=== PATIENT | female | born 1995 | race Caucasian/White ===

== ENCOUNTER 2016-05-17 13:26 | Emergency (ER) | payer OTHER ==
[2016-05-17 13:45] VITALS: BP 101/52; PULSE 85; TEMP 98.2; BMI 24.9
[2016-05-17] MEDS ORDERED: NAPROXEN 375 MG TABLET (FP) PO ONE (13:45)
[2016-05-17] MEDS ORDERED: NAPROXEN 375 MG TABLET (FP) ONE (13:55)
--- NOTE | 2016-05-17 14:57 | PDOC ---
History of Present Illness - General Chief Complaint: Pain Stated Complaint: NECK AND BACK PAIN Time Seen by Provider: 05/17/16 13:29 History Source: Patient Exam Limitations: No Limitations - History of Present Illness Initial Comments: 05/17/16 15:20 CHIEF COMPLAINT: "I hurt my back." HISTORY OF PRESENT ILLNESS: 20-year-old female with no significant past medical history presents complaining of mid back pain and neck stiffness. She states on she slipped on the stairs and she hit her mid back. She had pain at that time which improved. The pain was just about gone until yesterday when she slipped again and did not fall, but the areas of injury were twisted. Now she is complaining of pain in her mid thoracic region posteriorly with increased pain on turning or bending. She also feels some stiffness in her neck increased with range of motion. There was no fall or head injury prior to the onset of these latest symptoms. The only fall was the one that occurred on May 09. There is no headache. There is no nausea. There is no vomiting. There is no visual change. REVIEW OF SYSTEMS: GENERAL/CONSTITUTIONAL: No fever or chills. No weakness. No weight change. HEAD, EYES, EARS, NOSE AND THROAT: No change in vision. No ear pain or discharge. No sore throat. CARDIOVASCULAR: No chest pain or shortness of breath. RESPIRATORY: No cough, wheezing, or hemoptysis. GASTROINTESTINAL: No nausea, vomiting, diarrhea or constipation. No rectal bleeding. GENITOURINARY: No dysuria, frequency, or change in urination. MUSCULOSKELETAL: Positive mid back pain and positive neck stiffness, see history of present illness. SKIN AND BREASTS: No rash or easy bruising. NEUROLOGIC: No headache, vertigo, loss of consciousness, or loss of sensation. PSYCHIATRIC: No depression or anxiety. ENDOCRINE: No increased thirst. No abnormal weight change. HEMATOLOGIC/LYMPHATIC: No anemia, easy bleeding, or history of blood clots. ALLERGIC/IMMUNOLOGIC: No hives or skin allergy. No latex allergy. Past History - Past Medical History Allergies/Adverse Reactions: Allergies Allergy/AdvReac Type Severity Reaction Status Date / Time No Known Allergies Allergy Verified 05/17/16 13:27 Home Medications: Ambulatory Orders Naproxen [Naprosyn -] 250 mg PO BID #14 tablet 05/17/16 Asthma: Yes (childhood asthma) Other medical history: DENIES - Psycho/Social/Smoking Cessation Hx Anxiety: No Suicidal Ideation: No Smoking Status: No Smoking History: Never smoked Have you smoked in the past 12 months: No Number of Cigarettes Smoked Daily: 0 Information on smoking cessation initiated: No Hx Alcohol Use: No Drug/Substance Use Hx: No Substance Use Type: None Hx Substance Use Treatment: No *Physical Exam - Vital Signs Last Vital Signs Temp Pulse Resp BP Pulse Ox 98.2 F 85 17 101/52 97 05/17/16 13:26 05/17/16 13:26 05/17/16 13:26 05/17/16 13:26 05/17/16 13:26 - Physical Exam Comments: 05/17/16 15:22 GENERAL: The patient is awake, alert, and fully oriented, in no acute distress. HEAD: Normal with no signs of trauma. EYES: Pupils equal, round and reactive to light, extraocular movements intact, sclera anicteric, conjunctiva clear. ENT: Ears normal, nares patent, oropharynx clear without exudates. Moist mucous membranes. NECK: Mild limitation of range of motion due to muscle stiffness. No point bony tenderness. LUNGS: Breath sounds equal, clear to auscultation bilaterally. No wheezes, and no crackles. HEART: Regular rate and rhythm, normal S1 and S2 without murmur, rub or gallop. ABDOMEN: Soft, nontender, normoactive bowel sounds. No guarding, no rebound. No masses. EXTREMITIES: Normal range of motion, no edema. No clubbing or cyanosis. No cords, erythema, or tenderness. NEUROLOGICAL: Cranial nerves grossly intact. Normal speech, normal gait. Normal strength and sensation. PSYCH: Normal mood, normal affect. SKIN: Warm, Dry, normal turgor, no rashes or lesions noted. MUSCULOSKELETAL: There is mild tenderness in the paraspinal region of the mid thorax posteriorly. There is no swelling. There is no skin abrasion. Procedures - Laceration/Wound Repair Left Knee Progress: 05/17/16 14:57 LACERATION REPAIR: The skin was prepped with [Betadine][Chlora-prep][Saline]. 2% lidocaine with sodium bicarbonate was injected subcutaneously for local anesthesia. Normal saline lavage, high pressure, high volume was performed. [ ] - 0 Ethilon, [simple interrupted][running] sutures, x [ ] were placed. Bacitracin and dry sterile dressing were applied. Patient was advised regarding signs and symptoms of infection that would indicate a need to see the doctor immediately, as well as instructions for suture removal. ED Treatment Course - RADIOLOGY Radiology Studies Ordered: Category Date Time Status CHEST PA & LAT [RAD] Urgent Radiology 05/17/16 13:45 Completed - Medications Given in the ED: ED Medications Discontinued Medications Generic Name Dose Route Start Last Admin Trade Name Nayan PRN Reason Stop Dose Admin Naproxen 375 mg 05/17/16 13:45 05/17/16 14:04 Naprosyn - PO 05/17/16 13:46 375 mg ONCE ONE Administration Medical Decision Making - Medical Decision Making 05/17/16 15:23 Patient presents with a fall 9 days ago with mid back pain that resolved, now with a slip without fall but after twisting her body is complaining of mid back pain and neck pain. Examination is notable for muscle stiffness and sensitivity in both regions. Chest x-ray PA and lateral shows no fractures or lung abnormality. Impression: Musculoskeletal back and neck pain. She will be treated with Naprosyn. *DC/Admit/Observation/Transfer Diagnosis at time of Disposition: Neck sprain Qualifiers: Encounter type: initial encounter Qualified Code(s): S13.9XXA - Sprain of joints and ligaments of unspecified parts of neck, initial encounter Thoracic back sprain Qualifiers: Encounter type: initial encounter Qualified Code(s): S23.9XXA - Sprain of unspecified parts of thorax, initial encounter - Discharge Dispostion Disposition: HOME Condition at time of disposition: Stable Admit: No - Prescriptions Prescriptions: Naproxen [Naprosyn -] 250 mg PO BID #14 tablet - Patient Instructions Printed Discharge Instructions: DI for Back Strain or Sprain Additional Instructions: Today you were evaluated for neck and back pain. The x-ray is normal. The pain is likely caused by muscle and ligament strain. Take Naprosyn twice a day with food as needed for pain. Follow-up with your primary care physician in a few days if your symptoms have not resolved. Return to the emergency department for any severe or progressive symptoms.
== END 2016-05-17 15:35 | disposition home or self-care (01) ==
LOC: FER 13:26
PROC: 0HQLXZZ Repair Left Lower Leg Skin, External Approach (ICD-10-PCS; principal; 2016-05-17)
DX: S81.012A Laceration without foreign body, left knee, initial encounter (principal); S13.9XXA Sprain of joints and ligaments of unspecified parts of neck, initial encounter; S23.9XXA Sprain of unspecified parts of thorax, initial encounter; W18.40XA Slipping, tripping and stumbling without falling, unspecified, initial encounter; Y93.89 Activity, other specified; Y92.9 Unspecified place or not applicable; J45.909 Unspecified asthma, uncomplicated
CPT/HCPCS: 71020-TC; 99282-25

== ENCOUNTER 2019-11-04 18:30 | Emergency (ER) | payer OTHER ==
[2019-11-04] MEDS ORDERED: DIPHTH,PERTUSS(ACELL),TET 0.5 ML DISP.SYRIN IM ONE ×2 (18:37→18:39)
[2019-11-04 18:53] VITALS: BP 112/71; PULSE 84; BMI 22.6
== END 2019-11-04 19:15 | disposition home or self-care (01) ==
LOC: FER 18:30
PROC: 0HQFXZZ Repair Right Hand Skin, External Approach (ICD-10-PCS; principal; 2019-11-04)
PROC: 3E0234Z Introduction of Serum, Toxoid and Vaccine into Muscle, Percutaneous Approach (ICD-10-PCS; principal; 2019-11-04)
DX: S61.210A Laceration without foreign body of right index finger without damage to nail, initial encounter (principal); W23.0XXA Caught, crushed, jammed, or pinched between moving objects, initial encounter
CPT/HCPCS: 90715; 99282-25

== ENCOUNTER 2019-11-10 07:07 | Emergency (ER) | payer OTHER ==
--- NOTE | 2019-11-10 07:24 | PDOC ---
Suture Removal/Wound Check HPI - History of Present Illness Chief Complaint: Suture/Staple Removal(Here) Stated Complaint: SUTURE REMOVAL History Source: Yes: Patient Exam Limitations: Yes: No Limitations Treated at: [facility] ED - Previous ED Treatment Type of procedure performed on last visit: Yes: Laceration Repair Tetanus Immunization: Yes: Given at last ED visit - Onset of Previous Treatment Date of Occurence: 11/04/19 Past History - Medical History Allergies/Adverse Reactions: Allergies Allergy/AdvReac Type Severity Reaction Status Date / Time No Known Allergies Allergy Verified 11/10/19 07:08 Home Medications: Ambulatory Orders NK [No Known Home Medication] 11/04/19 Asthma: Yes (childhood asthma) COPD: No - Psycho-Social/Smoking History Smoking Status: No Smoking History: Never smoked Have you smoked in the past 12 months: No Number of Cigarettes Smoked Daily: 0 Medical Decision Making - Medical Decision Making 11/10/19 07:23 suture removal rigth index finger laceration. tolerated well. no signs of infection dc home. Discharge - Discharge Information Problems reviewed: Yes Clinical Impression/Diagnosis: Visit for suture removal Disposition: HOME - Follow up/Referral - Patient Discharge Instructions Patient Printed Discharge Instructions: DI for Suture Removal - Post Discharge Activity
[2019-11-10 07:32] VITALS: BP 124/63; PULSE 72; TEMP 98.2; BMI 10.1
[2019-11-10] MEDS ORDERED: LOCK ITEM NR ONE (09:36)
== END 2019-11-10 07:33 | disposition home or self-care (01) ==
LOC: FER 07:07
DX: S61.210A Laceration without foreign body of right index finger without damage to nail, initial encounter (principal); Z48.02 Encounter for removal of sutures
CPT/HCPCS: 99281-25